=== PATIENT | male | born 1995 | race Hispanic/Latino ===

== ENCOUNTER 2019-04-15 14:25 | Emergency (ER) | payer OTHER ==
[~2019-04-15] VITALS: Ht 172.7 cm; Wt 56.7 kg
[2019-04-15] MEDS ORDERED: TETANUS/DIPHTHERIA TOX ADULT 0.5 ML SYR IM ONE (15:00)
[2019-04-15] MEDS ORDERED: TETANUS/DIPHTHERIA TOX ADULT 0.5 ML SYR ONE (15:06)
[2019-04-15 15:10] VITALS: BP 120/72
--- NOTE | 2019-04-15 15:12 | NUR ---
[employer] CALLED SPOKE TO MONE INCIDENT #[id number]
[2019-04-15] MEDS ORDERED: NEOMYCIN/POLYMYX/BACITR OINT 0.9 GM PKT ONE (23:57)
== END 2019-04-15 15:28 | disposition home or self-care (01) ==
LOC: FSED 14:25
DX: S60.571A Other superficial bite of hand of right hand, initial encounter (principal); Y92.008 Other place in unspecified non-institutional (private) residence as the place of occurrence of the external cause
CPT/HCPCS: 90471; 90714; 99283